=== PATIENT | female | born 1990 | race African-American/Black ===

== ENCOUNTER 2019-05-09 00:06 | Emergency (ER) | payer OTHER ==
[~2019-05-09] VITALS: Ht 165.1 cm; Wt 101.6 kg
[2019-05-09] MEDS ORDERED: METHYLPREDNISOLONE SOD SUCC 125 MG/2ML VIAL IV ONE (00:30)
[2019-05-09 00:34] LABS: BASOPHILS # (AUTO) 0.1 (0.0-0.1); BASOPHILS % 0.5 % (0.0-1.0); EOSINOPHILS # (AUTO) 0.2 (0.0-0.4); EOSINOPHILS % 1.6 % (0.0-6.0); HEMATOCRIT 35.3 % (34.2-44.1); HEMOGLOBIN 11.7 g/dL (12.0-16.0); LYMPHOCYTES # (AUTO) 3.4 (1.0-3.2); LYMPHOCYTES % 26.4 % (18.0-39.1); MEAN CORPUSCULAR HEMOGLOBIN 29.3 pg (28-32); MEAN CORPUSCULAR HGB CONC 33.1 g/dL (31-35); MEAN CORPUSCULAR VOLUME 88.3 fL (81-99); MONOCYTES # (AUTO) 0.7 (0.2-0.8); MONOCYTES % 5.8 % (4.4-11.3); NEUTROPHILS # (AUTO) 8.3 (2.1-6.9); NEUTROPHILS % 65.4 % (38.7-80.0); PLATELET COUNT 281 x10e3/uL (140-360); RED CELL DISTRIBUTION WIDTH 12.7 % (11.7-14.4)
[2019-05-09] MEDS ORDERED: ALBUTEROL/IPRATROPIUM 3 ML NEB NEB ONE ×2 (00:45→03:15)
[2019-05-09 00:53] LABS: ALANINE AMINOTRANSFERASE 19 IU/L (0-55); ALBUMIN 3.9 g/dL (3.5-5.0); ALBUMIN/GLOBULIN RATIO 0.9 (0.8-2.0); ALKALINE PHOSPHATASE 75 IU/L (40-150); ANION GAP 16.8 mmol/L (8-16); BLOOD UREA NITROGEN 13 mg/dL (7-26); BUN/CREATININE RATIO 15 (6-25); CALCIUM 10.3 mg/dL (8.4-10.2); CARBON DIOXIDE 24 mmol/L (22-29); CHLORIDE 102 mmol/L (98-107); CREATININE, SERUM 0.86 mg/dL (0.57-1.11); EST GLOMERULAR FILTRATION RATE > 60 ML/MIN (60-); GLUCOSE 114 mg/dL (74-118); POTASSIUM 3.8 mmol/L (3.5-5.1); SODIUM 139 mmol/L (136-145)
[2019-05-09] MEDS ORDERED: IOPAMIDOL 370 MG/ML 200 ML INFUS..BTL INJ ONE (01:12)
[2019-05-09] MEDS ORDERED: SODIUM CHLORIDE 0.9% 50ML 50 ML ONE (01:12)
[2019-05-09 02:09] LABS: CREATINE KINASE MB < 1.00 ng/mL (0-4.3)
[2019-05-09 02:10] LABS: CREATINE KINASE 260 IU/L (29-168)
--- NOTE | 2019-05-09 02:25 | Diagnostic Imaging Report ---
History: Sore throat and shortness of breath. Comparison studies: None Technique: Axial, coronal and sagittal images from the skull base to the thoracic inlet. Coronal and sagittal images reconstructed from the axial data. Dose modulation, iterative reconstruction, and/or weight based adjustment of the mA/kV was utilized to reduce the radiation dose to as low as reasonably achievable. Intravenous contrast: 100 cc of Isovue 370. Findings: Soft tissues: No abnormality. No discrete enhancing mass or peripheral rim-enhancing fluid collection. The airway is patent. Lymph nodes: No radiographically significant adenopathy. Vessels: Arteries and veins are patent. Glands (thyroid, parotid and submandibular): 7.5 mm hypodense nodule in right lobe of thyroid gland. Otherwise bilateral parotid and submandibular glands are normal in size and symmetric. No masses. Orbits: No abnormalities. Paranasal sinuses: Mild mucosal thickening in right ethmoid sinus. Temporal bones: No abnormalities. Skull base and facial bones: Intact. Cervical spine: No abnormality. IMPRESSION: No acute abnormality. Signed by: Dr. Nancy Shen M.D. on 05/09/2019 2:22 AM
--- NOTE | 2019-05-09 02:34 | Diagnostic Imaging Report ---
EXAM: CT Chest WITH contrast 05/09/2019 12:22 AM INDICATION: ^SOB X2 WEEKS COMPARISON: None TECHNIQUE: Chest was scanned utilizing a multidetector helical scanner from the lung apex through the level of the adrenal glands without administration of IV contrast. Coronal and sagittal reformations were obtained. Routine protocol was performed. IV CONTRAST: 100 mL of Isovue-370 COMPLICATIONS: None RADIATION DOSE: Total DLP: 677.19 mGy*cm Estimated effective dose: (DLP x 0.014 x size factor) mSv CTDIvol has been reviewed. It is below the limits set by the Radiation Protocol Committee (RPC). FINDINGS: LINES/ TUBES: None. LUNGS AND AIRWAYS: The lungs are unremarkable. Airways are normal. PLEURA: The pleural spaces are clear. HEART AND MEDIASTINUM: Bilateral subcentimeter hypodense mid thyroid nodules. No mediastinal, hilar or axillary lymphadenopathy. The heart is normal in size.. There is no pericardial effusion. Main pulmonary artery measures 2.8 cm. UPPER ABDOMEN: Unremarkable. BONES: The visualized bony thorax is within normal limits. SOFT TISSUES: Unremarkable. IMPRESSION: Unremarkable chest CT. Signed by: Dr. Beny Huang MD on 05/09/2019 2:30 AM
[2019-05-09] MEDS ORDERED: ALBUTEROL/IPRATROPIUM 3 ML NEB ONE (03:12)
[2019-05-09] MEDS ORDERED: PREDNISONE20 MG PO (03:24)
== END 2019-05-09 03:43 | disposition home or self-care (01) ==
LOC: ER 00:06
DX: R06.09 Other forms of dyspnea (principal)
CPT/HCPCS: 36415; 70491; 71260; 80053; 82550; 82553; 84484; 84702; 85025; 94640 ×2; 96374; 99284; J2930; Q9967